=== PATIENT | female | born 1965 | race Caucasian/White ===

== ENCOUNTER → 2018-06-13 | Outpatient (CLI) | payer OTHER | LOC: RAD 05-16 02:08 | DX: Z12.31 Encounter for screening mammogram for malignant neoplasm of breast (principal) ==

== ENCOUNTER → 2018-06-21 | Outpatient (CLI) | payer OTHER | LOC: ULTRA 01:46 | DX: N63.14 Unspecified lump in the right breast, lower inner quadrant (principal) ==

== ENCOUNTER → 2019-06-26 | Outpatient (CLI) | payer OTHER | LOC: RAD 09:32 → BC 19:10 | DX: Z12.31 Encounter for screening mammogram for malignant neoplasm of breast (principal) ==

== ENCOUNTER → 2020-07-01 | Outpatient (CLI) | payer OTHER | LOC: BC 08:50 | PROVIDERS: ATTEND Family Medicine | DX: Z12.31 Encounter for screening mammogram for malignant neoplasm of breast (principal) ==

== ENCOUNTER → 2021-07-02 | Outpatient (CLI) | payer OTHER | LOC: BC 11:21 | PROVIDERS: ATTEND Family Medicine | DX: Z12.31 Encounter for screening mammogram for malignant neoplasm of breast (principal); N64.89 Other specified disorders of breast ==